=== PATIENT | female | born 1965 | race Caucasian/White ===

== ENCOUNTER 2017-07-25 19:54 | Inpatient (IN) | payer OTHER ==
[~2017-07-25 19:54] MED LIST: ALIN500T PO; BENT20TA PO; LORTA5 PO; PROT40TA PO; SIME80CH CHEW
[2017-07-25 19:59] VITALS: BP 180/82; PULSE 57; RESP 16; TEMP 97.8; O2SAT 98
[2017-07-25 22:29] VITALS: BP 149/65; PULSE 64; RESP 18; O2SAT 98
[2017-07-25 22:33] VITALS: RESP 18
[2017-07-25 22:59] LABS: AUTOMATED NEUTROPHIL # 3.6 TH/MM3 (1.8-7.7); BASOPHIL % 0.8 % (0.0-2.0); EOSINOPHIL # 0.1 TH/MM3 (0-0.4); EOSINOPHIL % 2.4 % (0.0-4.0); HEMATOCRIT 42.8 % (35.0-46.0); HEMO FLAGS DIFF FINAL; LYMPH % 30.9 % (9.0-44.0); LYMPHOCYTE # 1.9 TH/MM3 (1.0-4.8); MEAN CELL VOLUME 90.3 FL (80.0-100.0); MEAN CORPUSCULAR HEMOGLOBIN 30.6 PG (27.0-34.0); MEAN CORPUSCULAR HGB CONC 33.9 % (32.0-36.0); MONO % 7.6 % (0.0-8.0); NEUT % 58.3 % (16.0-70.0); PLATELET COUNT 192 TH/MM3 (150-450); RED BLOOD COUNT 4.74 MIL/MM3 (4.00-5.30); RED CELL DISTRIBUTION WIDTH 12.6 % (11.6-17.2); WHITE BLOOD COUNT 6.1 TH/MM3 (4.0-11.0)
--- NOTE | 2017-07-25 23:03 | RADRPT ---
EXAM DATE/TIME: 07/25/2017 22:49 [place] COMPARISON: No previous studies available for comparison. INDICATIONS : Chest pain. MEDICAL HISTORY : None. SURGICAL HISTORY : None. ENCOUNTER: Initial ACUITY: 1 day PAIN SCORE: 5/10 LOCATION: Bilateral chest FINDINGS: A single view of the chest demonstrates the lungs to be symmetrically aerated without evidence of mas s, infiltrate or effusion. The cardiomediastinal contours are unremarkable. Osseous structures are intact. There are multiple overlying electrocardiogram leads. CONCLUSION: No acute disease. Durga Chery MD on July 25, 2017 at 23:01 Board Certified Radiologist. This report was verified electronically.
[2017-07-25 23:08] LABS: BICARBONATE 26.1 MEQ/L (21.0-32.0); POTASSIUM 3.8 MEQ/L (3.5-5.1)
[2017-07-25] MEDS ORDERED: ASPIRIN 81 MG CHEW TAB CHEW ONE (23:30)
[2017-07-25] MEDS ORDERED: NITROGLYCERIN 2% OINT 1 GM PACKET TOPICAL ONE (23:30)
[2017-07-25] MEDS ORDERED: HEPARIN - 10,000 UNITS/ML IV ADDITIVE IV PUSH STA (23:37)
--- NOTE | 2017-07-25 23:47 | PD ---
HPI Chief Complaint: Chest Pain Time Seen by Provider: 22:23 Travel History International Travel<30 days: No Contact w/Intl Traveler<30days: No Traveled to known affect area: No History of Present Illness HPI Patient is a 51-year-old female with a history of irritable bowel syndrome yesterday she had multiple episodes of diarrhea and then she had left chest pain that led to vomiting the pain in the chest lasted 20 minutes then resolved the diarrhea continued for most of the night. Today she had a recurrence of diarrhea. Then again the pain came back to her left chest did not radiate it did not radiate to the arm it did not radiate to the neck. She took Tums to see if it would relieve the pain it did not work and she comes to the ER. In the ER the pain lasted for about 20 minutes in the exam room but then passed. She is not diaphoretic she is not clammy is not vomiting and there is no pain at this time her EKG does not show any elevations has flipped T waves in the V4 through 36 otherwise it is a normal sinus rhythm at a rate of 60. On her monitor she has multiple PVCs but no chest pain PFSH Past Medical History Cancer: No Cardiovascular Problems: No Diminished Hearing: No Endocrine: No Gastrointestinal Disorders: Yes (IBS) Genitourinary: No Immune Disorder: No Implanted Vascular Access Dvce: No Musculoskeletal: No Neurologic: No Psychiatric: No Reproductive: No Respiratory: No Immunizations Current: Yes Tetanus Vaccination: Unknown Influenza Vaccination: Yes ?: Unknown Past Surgical History Abdominal Surgery: No AICD: No Arteriovenous Shunt: No Cardiac Surgery: No Ear Surgery: No Endocrine Surgery: No Eye Surgery: No Genitourinary Surgery: No Insulin Pump: No Joint Replacement: No Neurologic Surgery: No Oral Surgery: Yes (TONSILECTOMY) Pacemaker: No Thoracic Surgery: No Tonsillectomy: Yes Other Surgery: Yes Social History Alcohol Use: No Tobacco Use: No Substance Use: No Allergies-Medications (Allergen,Severity, Reaction): Coded Allergies: No Known Allergies (Verified Allergy, Unknown, 07/26/17) Reported Meds & Prescriptions Reported Meds & Active Scripts Active Reported Levothyroxine (Levothyroxine Sodium) 50 Mcg Tab 50 Mcg PO DAILY Medroxyprogesterone Acetate 5 Mg Tab 5 Mg PO DAILY Start day 21 Estradiol 1 Mg Tab 1 Mg PO DAILY Review of Systems Except as stated in HPI: all other systems reviewed are Neg Cardiovascular: Positive: Chest Pain or Discomfort Gastrointestinal: Positive: Diarrhea Physical Exam Narrative GENERAL: Nontoxic-appearing normal mentation alert oriented 3 SKIN: Warm and dry. HEAD: Atraumatic. Normocephalic. EYES: Pupils equal and round. No scleral icterus. No injection or drainage. ENT: No nasal bleeding or discharge. Mucous membranes pink and moist. NECK: Trachea midline. No JVD. CARDIOVASCULAR: Regular rate and rhythm. RESPIRATORY: No accessory muscle use. Clear to auscultation. Breath sounds equal bilaterally. GASTROINTESTINAL: Abdomen soft, non-tender, nondistended. Hepatic and splenic margins not palpable. MUSCULOSKELETAL: Extremities without clubbing, cyanosis, or edema. No obvious deformities. NEUROLOGICAL: Awake and alert. No obvious cranial nerve deficits. Motor grossly within normal limits. Five out of 5 muscle strength in the arms and legs. Normal speech. PSYCHIATRIC: Appropriate mood and affect; insight and judgment normal. Data Data Last Documented VS Vital Signs Date Time Temp Pulse Resp B/P (MAP) Pulse Ox O2 Delivery O2 Flow Rate FiO2 07/25/17 22:33 18 07/25/17 22:33 98 Room Air 07/25/17 22:29 64 07/25/17 19:59 97.8 Orders Orders Electrocardiogram (07/25/17 22:31) Complete Blood Count With Diff (07/25/17 22:31) Basic Metabolic Panel (Bmp) (07/25/17 22:31) Ckmb (Isoenzyme) Profile (07/25/17 22:31) Troponin I (07/25/17 22:31) Chest, Single Ap (07/25/17 22:31) Iv Access Insert/Monitor (07/25/17 22:31) Ecg Monitoring (07/25/17 22:31) Oxygen Administration (07/25/17 22:31) Oximetry (07/25/17 22:31) Aspirin Chew (Aspirin Chew) (07/25/17 23:30) Nitroglycerin 2% Oint (Nitroglycerin 2% (07/25/17 23:30) Heparin Inj (Heparin Inj) (07/25/17 23:37) Heparin-D5w 25,000 U/250 Ml (Heparin-D5w (07/26/17 00:00) Admit To Inpatient (07/26/17 ) Vital Signs (Adult) Q4H (07/26/17 00:07) Activity Oob With Assistance (07/26/17 00:07) Water Project Manager / Telemetry .CONTINUOUS (07/26/17 00:07) Diet Npo (07/26/17 Breakfast) Sodium Chloride 0.9% Flush (Ns Flush) (07/26/17 00:15) Sodium Chloride 0.9% Flush (Ns Flush) (07/26/17 09:00) Creatine Kinase (Cpk) (07/26/17 04:30) Creatine Kinase (Cpk) (07/26/17 10:30) Troponin I (07/26/17 04:30) Troponin I (07/26/17 10:30) Electrocardiogram (07/26/17 04:30) Naloxone Inj (Narcan Inj) (07/26/17 00:15) Inpatient Certification (07/26/17 ) Consult Cardiology (07/26/17 ) Nitroglycerin Sl (Nitrostat Sl) (07/26/17 00:15) Aspirin Ec (Ecotrin Ec) (07/26/17 09:00) Admit Order (Ed Use Only) (07/26/17 00:27) Labs Laboratory Tests Test 07/25/17 22:35 White Blood Count 6.1 TH/MM3 Red Blood Count 4.74 MIL/MM3 Hemoglobin 14.5 GM/DL Hematocrit 42.8 % Mean Corpuscular Volume 90.3 FL Mean Corpuscular Hemoglobin 30.6 PG Mean Corpuscular Hemoglobin Concent 33.9 % Red Cell Distribution Width 12.6 % Platelet Count 192 TH/MM3 Mean Platelet Volume 9.1 FL Neutrophils (%) (Auto) 58.3 % Lymphocytes (%) (Auto) 30.9 % Monocytes (%) (Auto) 7.6 % Eosinophils (%) (Auto) 2.4 % Basophils (%) (Auto) 0.8 % Neutrophils # (Auto) 3.6 TH/MM3 Lymphocytes # (Auto) 1.9 TH/MM3 Monocytes # (Auto) 0.5 TH/MM3 Eosinophils # (Auto) 0.1 TH/MM3 Basophils # (Auto) 0.0 TH/MM3 CBC Comment DIFF FINAL Differential Comment Blood Urea Nitrogen 9 MG/DL Creatinine 0.70 MG/DL Random Glucose 94 MG/DL Calcium Level 9.3 MG/DL Sodium Level 139 MEQ/L Potassium Level 3.8 MEQ/L Chloride Level 106 MEQ/L Carbon Dioxide Level 26.1 MEQ/L Anion Gap 7 MEQ/L Estimat Glomerular Filtration Rate 88 ML/MIN Total Creatine Kinase 71 U/L Troponin I 0.88 NG/ML MDM Medical Decision Making Medical Screen Exam Complete: Yes Emergency Medical Condition: Yes Differential Diagnosis Gastritis versus GERD versus irritable bowel and GI involvement versus cardiac ischemia unstable angina Narrative Course EKG is normal sinus rhythm with flipped T's in V4 through V6 patient's troponin is 0.88 her pain is most likely due to myocardial ischemia I heparinized with a bolus and put her on a heparin drip call Dr. mancini credit control officer will take her to the catheter lab in the morning she is nothing by mouth she is on a heparin drip and given her aspirin and Nitropaste she patient is stable and pain-free at this time Critical Care Narrative Critical care time for cardiac ischemia monitoring for arrhythmia treating her with heparin and nitroglycerin. Reevaluating her frequently to evaluate blood pressure to control assuring that she is not having any reperfusion arrhythmias and that she is stable and getting her to the catheter lab in the a.m. Consultation with the credit control officer Dr. mancini. Critical care time 30 minutes Diagnosis Primary Impression: Myocardial ischemia Additional Impression: Non-STEMI (non-ST elevated myocardial infarction) Admitting Information Admitting Physician Requests: Admit Condition: Stable Renan Guan MD Jul 25, 2017 23:47
[2017-07-26] VITALS (20 sets, daily range): BP systolic 125–149; BP diastolic 64–87; PULSE 54–74; RESP 16–18; TEMP 97.3–98.2; O2SAT 96–97
[2017-07-26] MEDS ORDERED: HEPARIN-D5W 25,000 U/250 ML 250 ML IV PRN
[2017-07-26] MEDS ORDERED: SODIUM CHLORIDE 0.9% FLUSH 10 ML FLUSH IV FLUSH PRN (00:15)
[2017-07-26] MEDS ORDERED: NALOXONE HCL 0.4 MG/ML AMP IV PUSH PRN (00:15)
[2017-07-26] MEDS ORDERED: NITROGLYCERIN 0.4 MG SL 25 TABS/BTL SL PRN (00:15)
[2017-07-26] MEDS ORDERED: HEPARIN SODIUM - IV 10,000 UNITS/10 ML VIAL ONE ×2 (00:50→08:31)
[2017-07-26] MEDS ORDERED: LEVO50TA4 PO (01:56)
[2017-07-26] MEDS ORDERED: MEDR5TAB3 PO (01:56)
[2017-07-26] MEDS ORDERED: ESTR1TAB PO (01:56)
[2017-07-26] MEDS ORDERED: ATROPINE SULFATE 1 MG/10 ML SYRINGE ONE (06:43)
--- NOTE | 2017-07-26 06:46 | HHI.HP ---
[facility] Topher Garnica MD Admission Diagnosis NON STEMI Diagnoses: Travel History International Travel<30 Days: No Contact w/Intl Traveler <30 Da: No Traveled to Known Affected Are: No History of Present Illness History from patient, ER communication, and review of medical records. Patient reported that it started about 2 nights ago around 5 PM. She was having diarrhea episodes. She stated this diarrhea was not new to her since she suffers from irritable bowel syndrome. However the diarrhea is then followed by this midsternal chest pain which she described as achiness. Pain level is about 4 out of 10. She did not think much about it and the pain went away on its own. Then yesterday, she again has diarrhea after having her dinner. Again, she states her diarrhea is not unusual from her normal irritable bowel syndrome symptoms. But chest pain then recurred and this time it was much worse in intensity about 8 out of 10. She denies any radiation. Denies any diaphoresis or nausea. Denies any dyspnea on exertion or fatigue. She reports that she did measure her blood pressures and usually she runs low. But during these episodes of diarrhea and chest pain, her blood pressures were around 160s over 90s which is unusual for her. She decided to come to the hospital because this was the second episode. However the patient states the chest pain actually resolved even before she was seen in ER while waiting at triage. Patient denies any prior history of hypertension or diabetes or hyperlipidemia Never been a smoker. However was exposed to secondhand smoke most of her childhood. Review of Systems Except as stated in HPI: all other systems reviewed are Neg Past Family Social History Past Medical History hypothyroidism irritable bowel syndrome uterine ablation due to bleeding 2012- admitted at [place] for 10days due to cramping Past Surgical History uterine ablation tonsilectomy Allergies: Coded Allergies: No Known Allergies (Verified Allergy, Unknown, 07/26/17) Family History father- cabg at 62 yo paternal mother- mi at 60, dm Social History socially drinks etoh never smoked, but was second hand exposure no drugs Physical Exam Vital Signs Vital Signs Date Time Temp Pulse Resp B/P (MAP) Pulse Ox O2 Delivery O2 Flow Rate FiO2 07/26/17 06:00 57 07/26/17 05:00 56 07/26/17 04:00 57 07/26/17 03:20 97.3 57 16 137/64 (88) 97 07/26/17 03:00 60 07/26/17 02:00 61 07/26/17 02:00 98.1 56 16 145/73 (97) 97 07/26/17 01:55 61 07/25/17 22:33 18 07/25/17 22:33 98 Room Air 07/25/17 22:29 64 18 149/65 (93) 98 Room Air 07/25/17 19:59 97.8 57 16 180/82 (114) 98 Room Air Physical Exam GENERAL: This is a well-nourished, well-developed patient, in no apparent distress. SKIN: No rashes, ecchymoses or lesions. Cool and dry. HEAD: Atraumatic. Normocephalic. No temporal or scalp tenderness. EYES: No scleral icterus. No injection or drainage. ENT: Nose without bleeding, purulent drainage or septal hematoma. Airway patent. NECK: Trachea midline. No JVD CARDIOVASCULAR: Regular rate and rhythm without murmurs, gallops, or rubs. RESPIRATORY: Clear to auscultation. Breath sounds equal bilaterally. No wheezes , rales, or rhonchi. GASTROINTESTINAL: Abdomen soft, non-tender, nondistended. No guarding. MUSCULOSKELETAL: Extremities without clubbing, cyanosis, or edema. No calf tenderness. NEUROLOGICAL: Awake and alert. Motor and sensory grossly within normal limits.. Normal speech. Laboratory Laboratory Tests Test 07/25/17 22:35 07/26/17 01:10 07/26/17 04:56 White Blood Count 6.1 Red Blood Count 4.74 Hemoglobin 14.5 Hematocrit 42.8 Mean Corpuscular Volume 90.3 Mean Corpuscular Hemoglobin 30.6 Mean Corpuscular Hemoglobin Concent 33.9 Red Cell Distribution Width 12.6 Platelet Count 192 Mean Platelet Volume 9.1 Neutrophils (%) (Auto) 58.3 Lymphocytes (%) (Auto) 30.9 Monocytes (%) (Auto) 7.6 Eosinophils (%) (Auto) 2.4 Basophils (%) (Auto) 0.8 Neutrophils # (Auto) 3.6 Lymphocytes # (Auto) 1.9 Monocytes # (Auto) 0.5 Eosinophils # (Auto) 0.1 Basophils # (Auto) 0.0 CBC Comment DIFF FINAL Differential Comment Blood Urea Nitrogen 9 Creatinine 0.70 Random Glucose 94 Calcium Level 9.3 Sodium Level 139 Potassium Level 3.8 Chloride Level 106 Carbon Dioxide Level 26.1 Anion Gap 7 Estimat Glomerular Filtration Rate 88 Total Creatine Kinase 71 50 Troponin I 0.88 0.37 Prothrombin Time 10.0 Prothromb Time International Ratio 1.0 Activated Partial Thromboplast Time 25.0 Result Diagram: 07/25/17223407/25/172234 Imaging Last 48 hours Impressions Chest X-Ray 07/25/172230 Signed Impressions: Service Date/Time: Tuesday, July 25, 2017 22:49 - CONCLUSION: No acute disease. MD Cristina Mullins VTE Risk Assessment Jaradi Risk Assessment Model Point Value = 1 Point Value = 2 Point Value = 3 Point Value = 5 Age 41-60 Minor surgery BMI > 25 kg/m2 Swollen legs Varicose veins or History of unexplained or recurrent spontaneous Oral contraceptives or hormone replacement Sepsis (< 1 month) Serious lung disease, including pneumonia (< 1 month) Abnormal pulmonary function Acute myocardial infarction Congestive heart failure (< 1 month) History of inflammatory bowel disease Medical patient at bed rest Age 61-74 Arthroscopic surgery Major open surgery (> 45 min) Laparoscopic surgery (> 45 min) Malignancy Confined to bed (> 72 hours) Immobilizing plaster cast Central venous access Age >= 75 History of VTE Family history of VTE Factor V Leiden Prothrombin 24031L Lupus anticoagulant Anticardiolipin antibodies Elevated serum homocysteine Heparin-induced thrombocytopenia Other congenital or acquired thrombophilia Stroke (< 1 month) Elective arthroplasty Hip, pelvis, or leg fracture Acute spinal cord injury (< 1 month) Prophylaxis Regimen Total Risk Factor Score Risk Level Prophylaxis Regimen 0-1 Low Early ambulation 2 Moderate Order ONE of the following: *Sequential Compression Device (SCD) *Heparin 5000 units SQ BID 3-4 Higher Order ONE of the following medications: *Heparin 5000 units SQ TID *Enoxaparin/Lovenox 40 mg SQ daily (WT < 150 kg, CrCl > 30 mL/min) *Enoxaparin/Lovenox 30 mg SQ daily (WT < 150 kg, CrCl > 10-29 mL/min) *Enoxaparin/Lovenox 30 mg SQ BID (WT < 150 kg, CrCl > 30 mL/min) AND/OR *Sequential Compression Device (SCD) 5 or more Highest Order ONE of the following medications: *Heparin 5000 units SQ TID (Preferred with Epidurals) *Enoxaparin/Lovenox 40 mg SQ daily (WT < 150 kg, CrCl > 30 mL/min) *Enoxaparin/Lovenox 30 mg SQ daily (WT < 150 kg, CrCl > 10-29 mL/min) *Enoxaparin/Lovenox 30 mg SQ BID (WT < 150 kg, CrCl > 30 mL/min) AND *Sequential Compression Device (SCD) Physician Certification Order for Inpatient Services The services are ordered in accordance with Medicare regulations or non- Medicare payer requirements, as applicable. In the case of services not specified as inpatient-only, they are appropriately provided as inpatient services in accordance with the 2-midnight benchmark. days is the estimated time the patient will need to remain in the hospital, assuming treatment plan goals are met and no additional complications. Dean Ring MD Jul 26, 2017 06:46
[2017-07-26] MEDS ORDERED: LEVOTHYROXINE SODIUM 50 MCG TAB PO SCH (07:00)
--- NOTE | 2017-07-26 07:50 | PD.CONS ---
HPI Consult Requested By Primary Care Physician Topher Garnica MD History of Present Illness 51-year-old female with a past medical history of hypothyroidism, IBS, uterine ablation who presented with chest pain. The patient has been having bouts of diarrhea for the past 2 days typical for her IBS. 2 nights ago she had some midsternal chest pain that lasted approximately 1 hour, 4/10 in severity, spontaneously. Last night the pain recurred and was 8/10 in severity, lasted approximately 3 hours before resolving spontaneously. She denies any radiation of the pain. No associated shortness of breath, nausea, diaphoresis. No history of heart disease. Father with bypass at 62. Review of Systems Negative except as stated in history of present illness Past Family Social History Allergies: Coded Allergies: No Known Allergies (Verified Allergy, Unknown, 07/26/17) Past Medical History hypothyroidism irritable bowel syndrome uterine ablation due to bleeding Past Surgical History uterine ablation tonsilectomy Reported Medications Reported Meds & Active Scripts Active Reported Levothyroxine (Levothyroxine Sodium) 50 Mcg Tab 50 Mcg PO DAILY Medroxyprogesterone Acetate 5 Mg Tab 5 Mg PO DAILY Start day 21 Estradiol 1 Mg Tab 1 Mg PO DAILY Active Ordered Medications Current Medications Medications (Trade) Dose Ordered Sig/Dante Route Start Time Stop Time Status Last Admin Heparin Sodium/ Dextrose 250 ml @ 10 mls/hr TITRATE PRN IV 07/26/17 00:00 07/26/17 01:31 (NS Flush) 2 ml UNSCH PRN IV FLUSH 07/26/17 00:15 (NS Flush) 2 ml BID IV FLUSH 07/26/17 09:00 (Narcan Inj) 0.4 mg UNSCH PRN IV PUSH 07/26/17 00:15 (Nitrostat Sl) 0.4 mg Q5M PRN SL 07/26/17 00:15 (Ecotrin Ec) 325 mg DAILY PO 07/26/17 09:00 (Pneumovax-23 Inj) 25 mcg ONCE ONCE IM 07/27/17 09:00 07/27/17 09:01 (Estradiol) 1 mg DAILY PO 07/26/17 09:00 (Synthroid) 50 mcg DAILY@0700 PO 07/26/17 07:00 (Provera) 5 mg DAILY PO 07/26/17 09:00 Family History father- cabg at 62 yo paternal mother- mi at 60, dm Social History socially drinks etoh never smoked, but was second hand exposure no drugs Physical Exam Vital Signs Vital Signs Date Time Temp Pulse Resp B/P (MAP) Pulse Ox O2 Delivery O2 Flow Rate FiO2 07/26/17 06:00 57 07/26/17 05:00 56 07/26/17 04:00 57 07/26/17 03:20 97.3 57 16 137/64 (88) 97 07/26/17 03:00 60 07/26/17 02:00 61 07/26/17 02:00 98.1 56 16 145/73 (97) 97 07/26/17 01:55 61 07/25/17 22:33 18 07/25/17 22:33 98 Room Air 07/25/17 22:29 64 18 149/65 (93) 98 Room Air 07/25/17 19:59 97.8 57 16 180/82 (114) 98 Room Air Physical Exam GENERAL: Well-developed well-nourished. In no acute distress. NECK: No carotid bruits. No JVD. CARDIOVASCULAR: Regular rate and rhythm. No murmur appreciated. RESPIRATORY: No accessory muscle use. Clear to auscultation. Breath sounds equal bilaterally. MUSCULOSKELETAL: No clubbing or cyanosis. No edema. NEUROLOGICAL: Awake and alert. Normal speech. Laboratory Laboratory Tests Test 07/25/17 22:35 07/26/17 01:10 07/26/17 04:56 White Blood Count 6.1 Red Blood Count 4.74 Hemoglobin 14.5 Hematocrit 42.8 Mean Corpuscular Volume 90.3 Mean Corpuscular Hemoglobin 30.6 Mean Corpuscular Hemoglobin Concent 33.9 Red Cell Distribution Width 12.6 Platelet Count 192 Mean Platelet Volume 9.1 Neutrophils (%) (Auto) 58.3 Lymphocytes (%) (Auto) 30.9 Monocytes (%) (Auto) 7.6 Eosinophils (%) (Auto) 2.4 Basophils (%) (Auto) 0.8 Neutrophils # (Auto) 3.6 Lymphocytes # (Auto) 1.9 Monocytes # (Auto) 0.5 Eosinophils # (Auto) 0.1 Basophils # (Auto) 0.0 CBC Comment DIFF FINAL Differential Comment Blood Urea Nitrogen 9 Creatinine 0.70 Random Glucose 94 Calcium Level 9.3 Sodium Level 139 Potassium Level 3.8 Chloride Level 106 Carbon Dioxide Level 26.1 Anion Gap 7 Estimat Glomerular Filtration Rate 88 Total Creatine Kinase 71 50 Troponin I 0.88 0.37 Prothrombin Time 10.0 Prothromb Time International Ratio 1.0 Activated Partial Thromboplast Time 25.0 Result Diagram: 07/25/17223407/25/172234 Imaging Last Impressions Chest X-Ray 07/25/172230 Signed Impressions: Service Date/Time: Tuesday, July 25, 2017 22:49 - CONCLUSION: No acute disease. Durga Chery MD Assessment and Plan Assessment and Plan 51-year-old female with a past medical history of hypothyroidism, IBS, uterine ablation who presented with chest pain NSTEMI: Troponin 0.88, 0.37. EKG, cannot rule out anterior MN. Plan to proceed with cardiac catheterization today, bare-metal stenting if needed due to history of uterine bleeding, npo. Echocardiogram. Atif Young Jul 26, 2017 07:50
[2017-07-26] MEDS ORDERED: HEPARIN-NS/PF INJ 1,000 ML ONE (08:20)
[2017-07-26] MEDS ORDERED: MIDAZOLAM HCL 2 MG/2 ML VIAL ONE (08:25)
[2017-07-26] MEDS ORDERED: NITROGLYCERIN INJ 5 ML ONE (08:31)
[2017-07-26] MEDS ORDERED: ASPIRIN EC 325 MG TABEC PO SCH (09:00)
[2017-07-26] MEDS ORDERED: SODIUM CHLORIDE 0.9% FLUSH 10 ML FLUSH IV FLUSH SCH (09:00)
[2017-07-26] MEDS ORDERED: ESTRADIOL 1 MG TAB PO SCH (09:00)
[2017-07-26] MEDS ORDERED: LIDOCAINE 2% JELLY 30 ML TUBE TOP PRN (09:15)
[2017-07-26] MEDS ORDERED: MISC INFORMATION XX ONE (09:15)
[2017-07-26] MEDS ORDERED: BACITRACIN OINT 0.9 GM PKT TOP ONE (09:15)
--- NOTE | 2017-07-26 09:34 | MA ---
cc: YESENIA PETERSON DATE 07/26/2017 INDICATION [id number] WI. PROCEDURE PERFORMED 1. Fluoroscopy with interpretation. 2. Coronary angiography. 3. Left heart catheterization. METHOD The risks, benefits and alternatives were discussed with the patient. The patient understood and consented to the procedure. PROCEDURE The patient was taken to the Catheterization Lab and placed on the catheterization table. The right wrist was prepped and draped in sterile fashion. The right wrist was anesthetized with 2% lidocaine. The right radial artery was cannulated and a 6-Lao, 7-cm sheath was placed without difficulty. LEFT HEART CATHETERIZATION Intraventricular hemodynamics measured 135/2 mmHg. CORONARY ANGIOGRAPHY 1. The left main coronary artery is angiographically normal. 2. The left anterior descending coronary artery is large caliber size, angiographically normal. 3. The left circumflex is codominant, gives rise to a large posterior descending branch and is angiographically normal. 4. The right coronary artery is codominant, gives rise to a small posterior descending branch, angiographically normal. CONCLUSIONS 1. Angiographically normal coronary arteries. 2. Normal left-sided filling pressures. PLAN The patient's elevated troponin is likely demand-mediated in the setting of dehydration. We will manage medically. Anticipate discharge later today. MD KYLE Wells/VINCE /9:07 AM /9:12 AM
[2017-07-26] MEDS ORDERED: SODIUM CHLOR 0.9% 1000 ML INJ 1,000 ML IV SCH (10:00)
[2017-07-26] MEDS ORDERED: IOHEXOL 350 MG/ML 50 ML BTL (for Cath Lab) OTHER ONE (10:09)
--- NOTE | 2017-07-26 13:43 | ECHRPT ---
Indication: chest pain CONCLUSIONS The left ventricular systolic function is normal with an estimated ejection fraction in the range of 60-65%. Normal left ventricular size. Wall thickness is normal. No regional wall motion abnormalities are present. Trace mitral valve regurgitation. There is trace tricuspid valve regurgitation. The estimated pulmonary arterial pressure is 29.5 mmHg. BP: 149 / 87 HR: 62 Rhythm: PVCs MEASUREMENTS (Male / Female) Normal Values Technical Quality:Good 2D ECHO LV Diastolic Diameter PLAX 5.2 cm 4.2 - 5.9 / 3.9 - 5.3 cm LV Systolic Diameter PLAX 3.2 cm IVS Diastolic Thickness 1.1 cm 0.6 - 1.0 / 0.6 - 0.9 cm LVPW Diastolic Thickness 1.1 cm 0.6 - 1.0 / 0.6 - 0.9 cm LV Relative Wall Thickness 0.4 LVOT Diameter 2.1 cm LA Systolic Diameter LX 3.9 cm 3.0 - 4.0 / 2.7 - 3.8 cm LV Ejection Fraction MOD 4C 65.3 % LV Cardiac Index MOD 4C 2000.0 cm/minm LV Ejection Fraction 4C AL 66.2 % LV Cardiac Index 4C AL 2099.4 cm/minm M-MODE Aortic Root Diameter MM 2.5 cm AV Cusp Separation MM 1.8 cm DOPPLER AV Peak Velocity 143.0 cm/s AV Peak Gradient 8.2 mmHg LVOT Peak Velocity 94.8 cm/s LVOT Peak Gradient 3.6 mmHg AV Area Cont Eq pk 2.3 cm MV Area PHT 3.1 cm Mitral E Point Velocity 57.8 cm/s Mitral A Point Velocity 57.8 cm/s Mitral E to A Ratio 1.0 LV E' Lateral Velocity 6.4 cm/s Mitral E to LV E' Lateral Ratio 9.0 LV E' Septal Velocity 6.7 cm/s Mitral E to LV E' Septal Ratio 8.6 TR Peak Velocity 221.0 cm/s TR Peak Gradient 19.5 mmHg Right Atrial Pressure 10.0 mmHg Pulmonary Artery Systolic Pressu 29.5 mmHg Right Ventricular Systolic Press 29.5 mmHg PV Peak Velocity 70.6 cm/s PV Peak Gradient 2.0 mmHg FINDINGS LEFT VENTRICLE The left ventricular systolic function is normal with an estimated ejection fraction in the range of 60-65%. Normal left ventricular size. Wall thickness is normal. No regional wall motion abnormalities are present. RIGHT VENTRICLE Normal right ventricular size and systolic function. LEFT ATRIUM The left atrial size is normal. RIGHT ATRIUM The right atrial size is normal. ATRIAL SEPTUM Normal atrial septal thickness without atrial level shunting by limited color doppler interrogation. AORTA The aortic root and proximal ascending aorta are normal in size on limited imaging. MITRAL VALVE Structurally normal mitral valve. Trace mitral valve regurgitation. AORTIC VALVE Trileaflet aortic valve. No aortic valve stenosis or regurgitation. TRICUSPID VALVE Structurally normal tricuspid valve. There is trace tricuspid valve regurgitation. The estimated pulmonary arterial pressure is 29.5 mmHg. PULMONARY VALVE No pulmonary valve regurgitation or stenosis. VESSELS The inferior vena cava is normal in size. PERICARDIUM No pericardial effusion. Jian Joaquin MD, FACC (Electronically Signed) Final Date:26 July 2017 13:42
[2017-07-26] MEDS ORDERED: ACETAMINOPHEN 325 MG TAB PO PRN (15:30)
--- NOTE | 2017-07-26 16:09 | EKG ---
Date Performed: 07/25/2017 Time Performed: 22:17:14 PTAGE: 51 years EKG: Sinus rhythm WITH SINUS ARRHYTHMIA BORDERLINE LEFT AXIS DEVIATION MODERATE INTRAVENTRICULAR CONDUCTION DELAY ST D EVIATION AND MODERATE T-WAVE ABNORMALITY, CONSIDER LATERAL ISCHEMIA ST DEVIATION AND MODERATE T-WAVE ABNORMALITY, CONSIDER INFERIOR ISCHEMIA Prolonged corrected QT interval. ABNORMAL ECG NO PREVIOUS TRACING DOCTOR: Nikolai Roldan Interpretating Date/Time 07/26/2017 16:09:17
--- NOTE | 2017-07-26 16:13 | EKG ---
Date Performed: 07/26/2017 Time Performed: 05:01:06 PTAGE: 51 years EKG: Sinus bradycardia Prolonged QT interval Leftward axis Inferior ischemia and lateral ischemi a. Anterolateral ST-T changes may be due to myocardial ischemia Low QRS voltages in precordial leads Prolonged corrected QT interval. Abnormal ECG PREVIOUS TRACING : 07/25/2017 22.17 DOCTOR: Nikolai Roldan Interpretating Date/Time 07/26/2017 16:11:21
--- NOTE | 2017-07-26 21:20 | EKG ---
Date Performed: 07/26/2017 Time Performed: 17:19:14 PTAGE: 51 years EKG: SINUS TACHYCARDIA POSSIBLE LEFT ATRIAL ENLARGEMENT ABNORMAL RHYTHM ECG Compared to prior el ectrocardiogram, rate has increased and Nonspecific T wave changes no longer present. PREVIOUS TRACING : 07/26/2017 05.01 DOCTOR: Freddy Milian Interpretating Date/Time 07/26/2017 21:19:57
[2017-07-27] MEDS ORDERED: PNEUMOCOCCAL POLYVALENT INJ 25 MCG/0.5 ML SYR IM ONE (09:00)
[2017-07-27] MEDS ORDERED: ATORVASTATIN 10 MG TAB PO SCH (09:00)
[2017-07-27] MEDS ORDERED: ASPIRIN EC 325 MG TABEC PO SCH (09:00)
== END 2017-07-26 19:04 | disposition home or self-care (01) | DRG 287 ==
LOC: NEPC 19:54 → NEDA 07-26 00:29 → HCPC 07-26 01:50 → HCIS 07-26 07:22
PROVIDERS: ADMIT Family Medicine; ATTEND Family Medicine
PROC: B2111ZZ Fluoroscopy of Multiple Coronary Arteries using Low Osmolar Contrast (ICD-10-PCS; 2017-07-26)
PROC: 4A023N7 Measurement of Cardiac Sampling and Pressure, Left Heart, Percutaneous Approach (ICD-10-PCS; principal; 2017-07-26 08:00)
DX: I24.8 Other forms of acute ischemic heart disease (principal); E03.9 Hypothyroidism, unspecified; I49.3 Ventricular premature depolarization; K58.0 Irritable bowel syndrome with diarrhea; E86.0 Dehydration; Z77.22 Contact with and (suspected) exposure to environmental tobacco smoke (acute) (chronic); Z82.49 Family history of ischemic heart disease and other diseases of the circulatory system; Z83.3 Family history of diabetes mellitus
CPT/HCPCS: 71010; 80048; 82550; 84484; 85025; 85610; 85730; 93005; 93306; 93458; 99152; 99153; C1769; C1893; J0461; J1644; J2250; J3010; J7030; Q9967